=== PATIENT | male | born 1995 | race Caucasian/White ===

== ENCOUNTER 2018-10-07 18:32 | Emergency (ER) | payer SELFPAY ==
[2018-10-07] MEDS ORDERED: TETANUS/DIPHTHERIA TOXOID 0.5 ML SYRINGE IM ONE (18:41)
[2018-10-07] MEDS ORDERED: LIDOCAINE 2% 10 ML MDV SUBQ STA (18:42)
[2018-10-07] MEDS ORDERED: BACITRACIN OINT TOP STA (20:16)
[2018-10-07] MEDS ORDERED: cephALEXin 250 MG CAPSULE PO STA (20:16)
--- NOTE | 2018-10-07 20:22 | ED Physician Documentation ---
PD HPI LOWER EXT INJURY - Stated complaint Stated Complaint: RT KNEE PX - Chief complaint Chief Complaint: Laceration - History obtained from History obtained from: Patient, Family - History of Present Illness PD HPI LOW EXT INJURY LOCATION: Right, Knee Type of injury: Laceration, Other (fall on hiking trail, laceration R knee) Where injury occurred: [place] Timing - onset: How many hours ago (3) Timing - duration: Hours (3) Timing - details: Abrupt onset Pain level max: 5 Pain level now: 4 Improved by: Rest, Ice, Immobilization Worsened by: Moving, Palpating Associated symptoms: No: Weakness, Numbness, Tingling Similar symptoms before: Has not had sx before Recently seen: Not recently seen Review of Systems Constitutional: denies: Fever, Chills GI: denies: Vomiting Musculoskeletal: denies: Neck pain, Back pain PD PAST MEDICAL HISTORY - Past Medical History Past Medical History: Yes Respiratory: Asthma Psych: Depression - Past Surgical History Past Surgical History: No - Present Medications Home Medications: Ambulatory Orders Medication Instructions Recorded Confirmed Albuterol Sulf [Ventolin Hfa 1 - 2 puffs INH Q4HR PRN 10/07/18 10/07/18 Inhaler] Cephalexin [Keflex] 500 mg PO Q6H #28 capsule 10/07/18 Loratadine [Claritin] 10 mg PO DAILY 10/07/18 10/07/18 - Allergies Allergies/Adverse Reactions: Allergies Allergy/AdvReac Type Severity Reaction Status Date / Time Pertussis Vaccines Allergy Unknown Verified 10/07/18 18:37 - Social History Does the pt smoke?: No Smoking Status: Never smoker Does the pt drink ETOH?: No Does the pt have substance abuse?: No - Immunizations Immunizations are current?: Yes - POLST Patient has POLST: No PD ED PE NORMAL - Vitals Vital signs reviewed: Yes - General General: Alert and oriented X 3, No acute distress - Derm Derm: Warm and dry - Extremities Extremities: Other (R knee - Flap laceration, subcutaneous approximately 4 cm in length. Neurovascularly intact. Does not violate the joint capsule. No tendon injury. Full range of motion present. It is a dirty wound) - Neuro Neuro: Alert and oriented X 3 - Psych Psych: Normal mood, Normal affect Results - Vitals Vitals: Vital Signs - 24 hr 05/18/19 05/18/19 18:34 20:31 Temperature 36.6 C 36.6 C Heart Rate 110 H 108 H Respiratory 14 16 Rate Blood Pressure 144/86 H 130/98 H O2 Saturation 100 97 Oxygen O2 Source Room air Procedures - Laceration (location) R knee Length in cm: 4 Wound type: Curved, Flap Neurovascular status: Sensory intact, Motor intact, Vascular intact Tendon involvement: Tendon intact Anesthesia: Lidocaine 2% Wound Preparation: Irrigated copiously NS, Debrided extensively, Wound explored, To the base Skin layer closure: [place] Other: Patient tolerated well, No complications, Neurovascular intact, Dressing applied, Tetanus booster given Complexity: Intermediate PD MEDICAL DECISION MAKING - ED course Complexity details: considered differential, d/w patient ED course: 22-year-old male with a dirty wound. Td given. Wound irrigated with several bottles of saline. Debris removed. Closed with sophia. No joint capsule violation. Will place on Keflex. Warnings of infection and instructions on wound care given at bedside. Also counseled on how to minimize scarring. Patient and family counseled regarding signs and symptoms for which I believe and urgent re-evaluation would be necessary. Patient with good understanding of and agreement to plan and is comfortable going home at this time This document was made in part using voice recognition software. While efforts are made to proofread this document, sound alike and grammatical errors may occur. Departure - Departure Disposition: 01 Home, Self Care Clinical Impression: Laceration of right knee Qualifiers: Encounter type: initial encounter Qualified Code(s): S81.011A - Laceration without foreign body, right knee, initial encounter Condition: Good Instructions: ED Laceration Ext Sutr Stap Tape Follow-Up: your,doctor in 14 days for staple removal [Other] Prescriptions: Cephalexin [Keflex] 500 mg PO Q6H #28 capsule Comments: Take all antibiotics until gone. Keep the wound clean. Return if you worsen. Return especially for redness, swelling or drainage from the wound. The sophia should be removed in approximately 14 days with your doctor. Discharge Date/Time: 10/07/18 20:34
[2018-10-07 20:32] VITALS: BP 130/98
== END 2018-10-07 20:34 | disposition home or self-care (01) ==
LOC: ED 18:32
DX: S81.011A Laceration without foreign body, right knee, initial encounter (principal); W18.30XA Fall on same level, unspecified, initial encounter; Y93.01 Activity, walking, marching and hiking; Y92.828 Other wilderness area as the place of occurrence of the external cause; Z23 Encounter for immunization
CPT/HCPCS: 12032; 90471; 90714; 99283; A9270